=== PATIENT | female | born 2000 ===

== ENCOUNTER 2021-07-13 19:21 | Emergency (ER) | payer SELFPAY | END 2021-07-14 01:20 | disposition left against medical advice (07) | LOC: ED 19:21 | DX: R05.9 Cough, unspecified (principal); Z53.21 Procedure and treatment not carried out due to patient leaving prior to being seen by health care provider ==

== ENCOUNTER 2021-07-14 09:48 | Emergency (ER) | payer SELFPAY ==
--- NOTE | 2021-07-14 12:31 | Emergency Department Report ---
Minor Respiratory - HPI Chief Complaint: Medical Clearance Stated Complaint: SOB Duration: 3 Days Severity: mild Minor Respiratory: Yes Able to Tolerate Fluids, Yes Cough, Yes Sick Contacts, Yes Shortness of Breath, No Rhinorrhea, No Sore Throat, No Ear Pain, No Hemoptysis, No Chest Pain Other History: 20-year-old female presents to the emergency room complaining of cough difficulty breathing sneezing headache x1 week. Patient is unvaccinated for flu and Covid. She has no primary care provider. States that she started taking Robitussin yesterday. She has not tested for Covid. Currently has no past medical history takes no meds on a daily basis and has no known drug allergies. ED Review of Systems ROS: Stated complaint: SOB Other details as noted in HPI Comment: All other systems reviewed and negative Minor Respiratory Exam - Exam General: Vital signs noted. No distress. Alert and acting appropriately. HEENT: Yes Moist Mucous Membranes, No Pharyngeal Erythema, No Pharyngeal Exudates, No Rhinorrhea, No Conjuctival Injection, No Frontal Tenderness, No Maxillary Tenderness Neck: Yes Supple, No Adenopathy Lungs: Yes Good Air Exchange, No Wheezes, No Ronchi, No Stridor, No Cough, No Labored Respirations, No Retractions, No Use of Accessory Muscles, No Other Abnormal Lung Sounds Heart: Yes Regular, No Murmur Abdomen: Yes Normal Bowel Sounds, No Tenderness, No Peritoneal Signs Skin: No Rash, No Edema Neurologic: Alert and oriented, no deficits. Musculoskeletal: Unremarkable. ED Medical Decision Making - Medical Decision Making 20-year-old female presents to the emergency room complaining of cough difficulty breathing sneezing headache x1 week. Patient is unvaccinated for flu and Covid. She has no primary care provider. States that she started taking Robitussin yesterday. She has not tested for Covid. Currently has no past medical history takes no meds on a daily basis and has no known drug allergies. Discussed with patient today most likely have a viral or Covid-like illness. Discussed with patient to take Tylenol ibuprofen increase her fluids can take [id number] Robitussin or Delsym for your cough. Follow-up with your primary care provider. Get tested for Covid and consider getting your vaccination. Critical care attestation.: If time is entered above; I have spent that time in minutes in the direct care of this critically ill patient, excluding procedure time. ED Disposition Clinical Impression: Suspected COVID-19 virus infection, Viral illness Disposition: HOME / SELF CARE / HOMELESS Is pt being admited?: No Does the pt Need Aspirin: No Condition: Stable Instructions: Viral Respiratory Infection, [id number], COVID-19 Frequently Asked Questions, COVID-19: How to Protect Yourself and Others - [facility], Prevent the Spread of COVID-19 if You Are Sick - [facility] Additional Instructions: Your symptoms appear most consistent with a nonspecific viral syndrome. However, given this current pandemic, COVID-19 is in the differential of possibilities. Despite your previous negative COVID-19 test, I do recommend repeat outpatient Covid 19 testing. In the meantime, isolate/quarantine yourself and stay away from anyone who is elderly, immunocompromised or chronically ill. You can use ibuprofen every 6-8 hours and Tylenol every 4-8 hours, using the dosing on the back of the bottle, as needed for any fever or body aches. Return to the emergency department with any worsening of your symptoms, development of chest pain or shortness of breath, or with any acute distress. Referrals: [facility] [Provider Group] - 3-5 Days Forms: Work/School Release Form(ED) Time of Disposition: 12:31
[2021-07-14 12:34] VITALS: BP 110/71
== END 2021-07-14 15:21 | disposition home or self-care (01) ==
LOC: ED 09:48
DX: B34.9 Viral infection, unspecified (principal); Z20.822 Contact with and (suspected) exposure to COVID-19
CPT/HCPCS: 99282